=== PATIENT | male | born 1975 | race Caucasian/White ===

== ENCOUNTER 2017-05-06 12:20 | Emergency (ER) | payer MEDICAID, OTHER ==
[~2017-05-06] VITALS: Ht 157.5 cm; Wt 68.0 kg
[2017-05-06 12:25] VITALS: Ht 157.5 cm; Wt 68.0 kg
--- NOTE | 2017-05-06 12:27 | ERD ---
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 Patient called 911 because he is feeling jittery and tremulous after stopping drinking. He has alcohol abuse issues. He denies any hematemesis or melena, no abdominal pain back pain or flank pain. The patient is asking for detox. ROS All systems reviewed and are negative except as per history of present illness. Medications Home Meds Reported Medications Ranitidine Hcl* (Zantac*) 150 Mg Tablet, 150 MG PO HS, #30 TAB 05/06/17 Allergies Allergies: Coded Allergies: No Known Allergy (Unverified , 05/06/17) FmHx Family History: No diabetes Physical Exam Vitals Vital Signs Date Time Temp Pulse Resp B/P Pulse Ox O2 Delivery O2 Flow Rate FiO2 05/06/17 12:25 98.2 130 20 170/98 100 Physical Exam General: Well developed, well nourished, no acute distress the patient is resting comfortably with arms at his side, when asked to put out his arms he starts to shake them voluntarily Head: Normocephalic, atraumatic. Eyes: Pupils equally reactive, EOM intact ENT: Moist mucous membranes Neck: Supple, no lymphadenopathy Respiratory: Lungs clear bilaterally, no distress Cardiovascular: Tachycardia, no murmurs, rubs, or gallops Abdominal: Soft, non-tender, non-distended, no peritoneal signs : Deferred MSK: No edema, no unilateral swelling, 5/5 strength Neurologic: Alert and oriented, moving all extremities, normal speech, no focal weakness, no cerebellar signs, no asterixis Skin: No rash Psych: Normal mood Results 24 hrs Current Medications Medications (Trade) Dose Ordered Sig/Gisela Route PRN Reason Start Time Stop Time Status Last Admin Dose Admin Lorazepam 1 mg 1 mg ONCE ONCE PO 05/06/17 12:30 05/06/17 12:31 DC 05/06/17 12:33 Sodium Chloride (NS) 1,000 ml @ 1,000 mls/hr Q1H STAT IV 05/06/17 12:32 05/06/17 13:31 DC 05/06/17 12:42 Lorazepam (Ativan) 1 mg ONCE ONCE IV 05/06/17 13:00 05/06/17 13:01 DC 05/06/17 12:47 Thiamine HCl (Vitamin B1) 100 mg ONCE ONCE PO 05/06/17 13:00 05/06/17 13:01 DC 05/06/17 13:01 Folic Acid 1 mg 1 mg ONCE ONCE PO 05/06/17 13:00 05/06/17 13:01 DC 05/06/17 13:01 Sodium Chloride (NS) 1,000 ml @ 1,000 mls/hr Q1H STAT IV 05/06/17 13:03 05/06/17 14:02 05/06/17 13:08 Procedures/MDM MEDICAL DECISION MAKING: The patient presents with report of feeling shaky and tremulous after stopping drinking yesterday evening. However, the patient has a clinical exam that is consistent with behavioral shaking. His tremor is not consistent with involuntary tremor secondary to alcohol withdrawal. No evidence of complication such as seizure, altered mental status, head injury, GI bleed. The patient does have evidence of tachycardia possibly related to dehydration, mild withdrawal. For this reason the patient will benefit from gentle fluid resuscitation, IV benzodiazepines. The patient does not seem to be motivated and I am concerned that he may not be motivated as an outpatient. There is significant risk with providing outpatient benzodiazepines to this patient. He was offered complex carbohydrate meal but refused. The patient was given 1 mg of p.o. Ativan. ER COURSE: services program manager resources were provided to the patient for outpatient detox centers. The patient does have sinus tachycardia that is likely consistent with dehydration versus early withdrawal. For this reason an IV was established the patient was given a liter saline and 1 of IV Ativan after the oral Ativan. The patient had improved symptoms has not required repeat dosing and heart rate has improved with intervention. Oral thiamine and folic acid also provided. I kept the patient and/or family informed of laboratory and diagnostic imaging results throughout the emergency room course. DISPOSITION PLAN: We discussed follow up with the patient's primary care doctor within 24 to 48 hours as needed. We also discussed return to the emergency room for worsening symptoms or worsening condition. Outpatient referral: Detox and substance abuse resources Departure Diagnosis: Primary Impression: Alcohol abuse Additional Impression: Alcohol withdrawal Complication of substance-induced condition: with unspecified complication Qualified Code: F10.239 - Alcohol withdrawal, with unspecified complication Condition: Stable Patient Instructions: Alcoholism: Getting Help, Alcohol Addiction, Alcohol Abuse Referrals: [facility] Usted se plasencia hecho un examen mdico de control que le indica que no est en diane condicin que requiera tratamiento urgente en el Departamento de Emergencia. Un estudio ms profundo y el tratamiento de hurley condicin pueden esperar sin ningn riesgo hasta que usted sea atendida/o en el consultorio de hurley mdico o diane cl isaura. Es responsabilidad suya arreglar diane yuriy para el seguimiento del phill. MANEJO DE CONDICIONES NO URGENTES EN EL FUTURO 1) Si usted tiene un mdico de atencin primaria: Usted debera llamar a hurley mdico de atencin primaria antes de venir al departamento de emergencia. Despus de las horas de consultorio, hurley doctor o hurley asociado/a est disponible por telfono. El mdico o enfermero de jona en el servicio telefnico puede asesorarle por jarred medio para atender el problema, o phill contrario se puede programar diane yuriy. 2) Si usted no tiene un mdico de atencin primaria: Llame al mdico o clnica de referencia que aparece abajo elo las horas de consultorio para hacer diane yuriy para que le vean. CLINICAS: [facility] [phone] [facility] [phone] [facility] [phone] [facility]. [facility] [phone] [facility] [facility]. [place] [phone] [facility]. [phone] [address] [facility] [facility] () Usted se plasencia hecho un examen mdico de control que le indica que no est en diane condicin que requiera tratamiento urgente en el Departamento de Emergencia. Un estudio ms profundo y el tratamiento de hurley condicin pueden esperar sin ningn riesgo hasta que usted sea atendida/o en el consultorio de hurley mdico o diane cl isaura. Es responsabilidad suya arreglar diane yuriy para el seguimiento del phill. MANEJO DE CONDICIONES NO URGENTES EN EL FUTURO 1) Si usted tiene un mdico de atencin primaria: Usted debera llamar a hurley mdico de atencin primaria antes de venir al departamento de emergencia. Despus de las horas de consultorio, hurley doctor o hurley asociado/a est disponible por telfono. El mdico o enfermero de jona en el servicio telefnico puede asesorarle por jarred medio para atender el problema, o phill contrario se puede programar diane yuriy. 2) Si usted no tiene un mdico de atencin primaria: Llame al mdico o condado institucions de referencia que aparece abajo elo las horas de consultorio para hacer diane yuriy para que le vean. SI USTED NO PUEDE PAGAR PARA LAILA UN MEDICO puede ir a: [facility] [address] [place] [address] [facility] [address] [place] [address] [facility] [address] [place] [address] PARA ARNULFO [facility] [address] [place], [place] [id number] Additional Instructions: Llame al doctor nombrado abajo (Referral Sources) MAANA y sandi diane YURIY PARA DENTRO DE DIANE SEMANA. Dgale a la secretaria que nosotros le instruimos hacer esta uyriy.Avise o llame si hurley condicin se empeora antes de la yuriy. DANIEL ABBASI MD May 06, 2017 12:27
[2017-05-06] MEDS ORDERED: LORAZEPAM 1 MG TAB PO ONE (12:30)
[2017-05-06] MEDS ORDERED: SOD CHLORIDE 0.9% 1,000 ML IV STA ×2 (12:32→13:03)
[2017-05-06] MEDS ORDERED: THIAMINE 100 MG TAB PO ONE (13:00)
[2017-05-06] MEDS ORDERED: LORAZEPAM 2 MG INJ IV ONE (13:00)
[2017-05-06] MEDS ORDERED: FOLIC ACID 1 MG TAB PO ONE (13:00)
[2017-05-06] MEDS ORDERED: RANI150T9 PO (13:18)
[2017-05-06 13:41] VITALS: BP 138/82; PULSE 100; RESP 18
== END 2017-05-06 13:41 | disposition home or self-care (01) ==
LOC: E/R 12:20
DX: F10.239 Alcohol dependence with withdrawal, unspecified (principal)
CPT/HCPCS: 96374; J2060; J7030; Z7502; Z7610

== ENCOUNTER 2017-05-19 22:20 | Emergency (ER) | payer MEDICAID ==
[~2017-05-19] VITALS: Ht 167.6 cm; Wt 77.5 kg
[~2017-05-19 22:20] MED LIST: RANI150T9 PO
[2017-05-19 22:24] VITALS: Ht 167.6 cm; Wt 77.5 kg
--- NOTE | 2017-05-19 22:57 | ERA ---
ER Documentation Chief Complaint Date/Time DATE: 05/19/17 TIME: 22:57 Chief Complaint etoh intoxication HPI The patient is a 41-year-old male, presenting to the ER because of bilateral upper extremity rash for 2 days. It is itchy. He denies fever, chills, neck pain, chest pain. Has been drinking heavily for the last couple days, complains of minimal epigastric abdominal discomfort. He was in the ER about 7 days ago for alcohol intoxication. He complains of nausea and vomited mostly mucus, denies diarrhea, constipation, dysuria. He does not smoke nor does illicit drug Past medical history: Hypertension however he is noncompliant with his medication Past surgical history: Appendectomy ROS All systems reviewed and are negative except as per history of present illness. Medications Home Meds Active Scripts Triamcinolone Acetonide* (Kenalog*) 0.1%-15GM Cr, 1 APPLIC TOP BID for 10 Days, #1 TUB Prov:LUDWIN PICKENS MD 05/20/17 Reported Medications Multivitamins* (Theragran*) 1 Tab Tab, 1 TAB PO DAILY, TAB 05/19/17 Ranitidine Hcl* (Zantac*) 150 Mg Tablet, 150 MG PO HS, #30 TAB 05/06/17 Allergies Allergies: Coded Allergies: No Known Allergy (Unverified , 05/19/17) PMhx/Soc History of Surgery: Yes (Appendectomy) Anesthesia Reaction: No Hx Neurological Disorder: No Hx Respiratory Disorders: No Hx Cardiac Disorders: Yes (HTN) Hx Psychiatric Problems: No Hx Miscellaneous Medical Probl: No Hx Alcohol Use: Yes (Here for Withdrawal) Hx Substance Use: No Hx Tobacco Use: No Smoking Status: Never smoker Physical Exam Vitals Vital Signs Date Time Temp Pulse Resp B/P Pulse Ox O2 Delivery O2 Flow Rate FiO2 05/20/17 02:22 97.7 103 16 136/82 96 Room Air 05/20/17 00:22 115 20 155/88 98 05/19/17 22:24 97.2 133 20 162/97 97 Physical Exam Const: No acute distress. Head: Atraumatic. Eyes: Normal Conjunctiva. ENT: Normal External Ears, Nose and Mouth. Neck: Full range of motion. No meningismus. Resp: Clear to auscultation bilaterally. Cardio: Regular tachycardic Abd: Soft, non distended, normal bowel sounds, mild epigastric tenderness, no right lower, coronary upper quadrant, rigidity, rebound, CVA tenderness Skin: No petechiae or rashes. Back: No midline or flank tenderness. Ext: No cyanosis, or edema. Minimal erythematous macular rash on the left upper extremity. No vesicle, no petechia Neur: Awake and alert. No focal deficit Psych: Normal Mood and Affect. Result Diagram: 05/19/17 2330 05/19/17 2330 Results 24 hrs Laboratory Tests Test 05/19/17 23:30 White Blood Count 3.610^3/ul Red Blood Count 5.8910^6/ul Hemoglobin 16.4g/dl Hematocrit 47.9% Mean Corpuscular Volume 81.3fl Mean Corpuscular Hemoglobin 27.8pg Mean Corpuscular Hemoglobin Concent 34.2g/dl Red Cell Distribution Width 14.0% Platelet Count 34240^3/UL Mean Platelet Volume 11.0fl Neutrophils % 58.5% Lymphocytes % 31.7% Monocytes % 8.1% Eosinophils % 0.8% Basophils % 0.6% Nucleated Red Blood Cells % 0.0/100WBC Neutrophils # 2.110^3/ul Lymphocytes # 1.110^3/ul Monocytes # 0.310^3/ul Eosinophils # 0.010^3/ul Basophils # 0.010^3/ul Nucleated Red Blood Cells # 0.010^3/ul Urine Color COLORLESS Urine Clarity CLEAR Urine pH 6.0 Urine Specific [place] 1.002 Urine Ketones NEGATIVEmg/dL Urine Nitrite NEGATIVEmg/dL Urine Bilirubin NEGATIVEmg/dL Urine Urobilinogen NEGATIVEmg/dL Urine Leukocyte Esterase NEGATIVELeu/ul Urine Hemoglobin NEGATIVEmg/dL Urine Glucose NEGATIVEmg/dL Urine Total Protein NEGATIVEmg/dl Sodium Level 150mmol/L Potassium Level 3.8mmol/L Chloride Level 103mmol/L Carbon Dioxide Level 22mmol/L Anion Gap 29 Blood Urea Nitrogen 7mg/dl Creatinine 1.17mg/dl Glucose Level 110mg/dl Calcium Level 9.4mg/dl Total Bilirubin 0.4mg/dl Direct Bilirubin 0.00mg/dl Indirect Bilirubin 0.4mg/dl Aspartate Amino Transf (AST/SGOT) 52IU/L Alanine Aminotransferase (ALT/SGPT) 50IU/L Alkaline Phosphatase 92IU/L Total Protein 9.0g/dl Albumin 5.1g/dl Globulin 3.90g/dl Albumin/Globulin Ratio 1.30 Lipase 61U/L Urine Opiates Screen Negative Urine Barbiturates Negative Urine Amphetamines Screen Negative Urine Benzodiazepines Screen Negative Urine Cocaine Screen Negative Urine Cannabinoids Negative Ethyl Alcohol Level 422.0mg/dl Current Medications Medications (Trade) Dose Ordered Sig/Gisela Route PRN Reason Start Time Stop Time Status Last Admin Dose Admin Sodium Chloride (NS) 1,000 ml @ 1,000 mls/hr Q1H STAT IV 05/19/17 23:05 05/20/17 00:04 DC 05/19/17 23:23 Lorazepam (Ativan) 1 mg ONCE ONCE IV 05/19/17 23:30 05/19/17 23:31 DC 05/19/17 23:23 Clonidine (Catapres) 0.2 mg ONCE ONCE PO 05/19/17 23:30 05/19/17 23:31 DC 05/19/17 23:23 Thiamine HCl (Vitamin B1) 100 mg ONCE ONCE PO 05/19/17 23:30 05/19/17 23:31 DC Folic Acid (Folic Acid) 1 mg ONCE ONCE PO 05/19/17 23:30 05/19/17 23:31 DC Ondansetron HCl (Zofran Inj) 4 mg ONCE STAT IV 05/19/17 23:05 05/19/17 23:10 DC 05/19/17 23:24 Procedures/MDM MEDICAL MAKING DECISION: The patient is a 41-year-old male, presenting with acute bilateral upper extremity nonspecific dermatitis, alcohol intoxication, hyponatremia, leukopenia , accelerated hypertension he was treated with 1 L normal saline, Ativan 1 mg IV , Zofran formula, IV, clonidine 0.2 mg p.o., thiamine 100 mg p.o. and folic acid 1 mg p.o. good response. His vital signs improved and his heart rate normalized. He is ambulating independently and tolerating p.o. well in the ER. He has stay in the ER for many hours and now is stable for discharge Departure Diagnosis: Primary Impression: Dermatitis Additional Impressions: Alcohol abuse Hypernatremia Leukopenia Condition: Good Comments He was discharged with Kenalog I discussed the findings with the patient. I advised the patient to follow-up with the primary physician in about 1-2 days, sooner if needed and return if any concern. LUDWIN PICKENS MD May 19, 2017 22:57
[2017-05-19] MEDS ORDERED: ONDANSETRON 4 MG INJ IV STA (23:05)
[2017-05-19] MEDS ORDERED: SOD CHLORIDE 0.9% 1,000 ML IV STA (23:05)
[2017-05-19] MEDS ORDERED: MULTI PO (23:27)
[2017-05-19] MEDS ORDERED: THIAMINE 100 MG TAB PO ONE (23:30)
[2017-05-19] MEDS ORDERED: FOLIC ACID 1 MG TAB PO ONE (23:30)
[2017-05-19] MEDS ORDERED: LORAZEPAM 2 MG INJ IV ONE (23:30)
[2017-05-20 00:06] LABS: BASOPHILS % 0.6 % (0.0-2.0); EOSINOPHILS % 0.8 % (0.0-7.0); HEMATOCRIT 47.9 % (42.0-52.0); HEMOGLOBIN 16.4 g/dl (14.0-18.0); LYMPHOCYTES # 1.1 10^3/ul (0.8-2.9); LYMPHOCYTES % 31.7 % (15.0-51.0); MEAN CORPUSCULAR HEMOGLOBIN 27.8 pg (29.0-33.0); MEAN CORPUSCULAR HGB CONC 34.2 g/dl (32.0-37.0); MEAN CORPUSCULAR VOLUME 81.3 fl (82.0-101.0); MONOCYTE # 0.3 10^3/ul (0.3-0.9); MONOCYTES % 8.1 % (0.0-11.0); NEUTROPHIL # 2.1 10^3/ul (1.6-7.5); NEUTROPHILS % 58.5 % (39.0-77.0); PLATELET COUNT 278 10^3/UL (140-415); RED BLOOD COUNT 5.89 10^6/ul (4.70-6.10); WHITE BLOOD COUNT 3.6 10^3/ul (4.8-10.8)
[2017-05-20 00:26] LABS: ALBUMIN 5.1 g/dl (3.3-4.9); ALBUMIN/GLOBULIN RATIO 1.3; BARBITURATES Negative (NEGATIVE); BENZODIAZEPINES Negative (NEGATIVE); BILIRUBIN,INDIRECT 0.4 mg/dl (0-1.1); BILIRUBIN,TOTAL 0.4 mg/dl (0.2-1.3); CALCIUM 9.4 mg/dl (8.4-10.2); CANNABINOIDS Negative (NEGATIVE); COCAINE Negative (NEGATIVE); CREATININE 1.17 mg/dl (0.61-1.24); OPIATES Negative (NEGATIVE); POTASSIUM 3.8 mmol/L (3.5-5.1)
[2017-05-20 02:00] LABS: ADD UMIC NO; UR ASCORBIC ACID NEGATIVE (NEGATIVE); UR BILIRUBIN (Dip) NEGATIVE (NEGATIVE); UR BLOOD (Dip) NEGATIVE (NEGATIVE); UR CLARITY CLEAR (CLEAR); UR COLOR COLORLESS (YELLOW); UR GLUCOSE (Dip) NEGATIVE (NEGATIVE); UR KETONES (Dip) NEGATIVE (NEGATIVE); UR LEUKOCYTE ESTERASE (Dip) NEGATIVE Leu/ul (NEGATIVE); UR NITRITE (Dip) NEGATIVE (NEGATIVE); UR SPECIFIC GRAVITY (Dip) 1.002 (1.003-1.030); UR TOTAL PROTEIN (Dip) NEGATIVE (NEGATIVE); UR UROBILINOGEN (Dip) NEGATIVE (NEGATIVE)
[2017-05-20] MEDS ORDERED: TRIA15CR55 TOP (02:14)
[2017-05-20 02:22] VITALS: BP 136/82; PULSE 103; RESP 16; TEMP 97.7
== END 2017-05-20 04:08 | disposition home or self-care (01) ==
LOC: E/R 22:20
DX: L30.9 Dermatitis, unspecified (principal); E87.0 Hyperosmolality and hypernatremia; D72.819 Decreased white blood cell count, unspecified; I10 Essential (primary) hypertension
CPT/HCPCS: 36415; 80053; 80306; 80307; 81003; 83690; 85025; 96361; 96374; 96375; J2060; J2405; J7030; Z7502; Z7610

== ENCOUNTER 2017-06-08 20:19 | Emergency (ER) | payer MEDICAID ==
[~2017-06-08] VITALS: Ht 167.6 cm; Wt 77.0 kg
[~2017-06-08 20:19] MED LIST changes: +MULTI PO; +TRIA15CR55 TOP
[2017-06-08 20:21] VITALS: Ht 167.6 cm; Wt 77.0 kg
--- NOTE | 2017-06-08 23:45 | ERA ---
ER Documentation Chief Complaint Date/Time DATE: 06/08/17 TIME: 23:45 Chief Complaint Abdominal pain HPI The patient is a 41-year-old male, presenting to the ER because of epigastric abdominal pain intermittently for the last week after drinking heavily. He has similar symptoms previously, denies fever, chills, chest pain, dyspnea, hematemesis, hematochezia, dysuria, diarrhea. He does not smoke, denies any illicit Past medical history: Anxiety, gastritis Past surgical history: Appendectomy ROS All systems reviewed and are negative except as per history of present illness. Medications Home Meds Active Scripts Lorazepam* (Ativan*) 0.5 Mg Tablet, 0.5 MG PO Q8, #10 TAB Prov:LUDWIN PICKENS MD 06/09/17 Pantoprazole* (Protonix*) 40 Mg Tablet.dr, 40 MG PO DAILY, #20 TAB Prov:LUDWIN PICKENS MD 06/09/17 Triamcinolone Acetonide* (Kenalog*) 0.1%-15GM Cr, 1 APPLIC TOP BID for 10 Days, #1 TUB Prov:LUDWIN PICKENS MD 05/20/17 Reported Medications Multivitamins* (Theragran*) 1 Tab Tab, 1 TAB PO DAILY, TAB 05/19/17 Ranitidine Hcl* (Zantac*) 150 Mg Tablet, 150 MG PO HS, #30 TAB 05/06/17 Allergies Allergies: Coded Allergies: No Known Allergy (Unverified , 06/09/17) PMhx/Soc History of Surgery: Yes (Appendectomy) Anesthesia Reaction: No Hx Neurological Disorder: No Hx Respiratory Disorders: No Hx Cardiac Disorders: Yes (HTN) Hx Psychiatric Problems: No Hx Miscellaneous Medical Probl: No Hx Alcohol Use: Yes (HEAVY DRINKER ) Hx Substance Use: No Hx Tobacco Use: No Smoking Status: Never smoker Physical Exam Vitals Vital Signs Date Time Temp Pulse Resp B/P Pulse Ox O2 Delivery O2 Flow Rate FiO2 06/09/17 03:54 97.9 95 16 124/92 98 Room Air 06/09/17 02:00 87 15 100/72 97 Room Air 06/08/17 23:30 97.6 103 26 141/95 96 Room Air 06/08/17 20:21 97.8 125 20 140/86 98 Physical Exam Const: No acute distress. Head: Atraumatic. Eyes: Normal Conjunctiva. ENT: Normal External Ears, Nose and Mouth. Neck: Full range of motion. No meningismus. Resp: Clear to auscultation bilaterally. Cardio: Regular tachycardic Abd: Soft, non distended, normal bowel sounds, mild epigastric tenderness, no right lower quadrant, right upper quadrant, CVA tenderness Skin: No petechiae or rashes. Back: No midline or flank tenderness. Ext: No cyanosis, or edema. Neur: Awake and alert. No focal deficit Psych: Normal Mood and Affect. Result Diagram: 06/09/17 0015 06/09/17 0015 Results 24 hrs Laboratory Tests Test 06/09/17 00:15 White Blood Count 3.110^3/ul Red Blood Count 5.3110^6/ul Hemoglobin 14.9g/dl Hematocrit 43.6% Mean Corpuscular Volume 82.1fl Mean Corpuscular Hemoglobin 28.1pg Mean Corpuscular Hemoglobin Concent 34.2g/dl Red Cell Distribution Width 14.0% Platelet Count 63474^3/UL Mean Platelet Volume 10.3fl Neutrophils % 41.0% Lymphocytes % 47.5% Monocytes % 6.6% Eosinophils % 3.9% Basophils % 1.0% Nucleated Red Blood Cells % 0.0/100WBC Neutrophils # (Manual) 1.310^3/ul Lymphocytes # 1.510^3/ul Monocytes # 0.210^3/ul Eosinophils # 0.110^3/ul Basophils # 0.010^3/ul Nucleated Red Blood Cells # 0.010^3/ul Sodium Level 143mmol/L Potassium Level 3.5mmol/L Chloride Level 101mmol/L Carbon Dioxide Level 26mmol/L Anion Gap 20 Blood Urea Nitrogen 7mg/dl Creatinine 0.81mg/dl Glucose Level 98mg/dl Calcium Level 8.9mg/dl Total Bilirubin 0.2mg/dl Direct Bilirubin 0.00mg/dl Indirect Bilirubin 0.2mg/dl Aspartate Amino Transf (AST/SGOT) 53IU/L Alanine Aminotransferase (ALT/SGPT) 60IU/L Alkaline Phosphatase 106IU/L Total Protein 8.0g/dl Albumin 4.3g/dl Globulin 3.70g/dl Albumin/Globulin Ratio 1.16 Lipase 62U/L Current Medications Medications (Trade) Dose Ordered Sig/Gisela Route PRN Reason Start Time Stop Time Status Last Admin Dose Admin Sodium Chloride (NS) 1,000 ml @ 1,000 mls/hr Q1H STAT IV 06/09/17 00:08 06/09/17 01:07 DC 06/09/17 00:23 Lorazepam (Ativan) 1 mg ONCE ONCE IV 06/09/17 00:30 06/09/17 00:31 DC 06/09/17 00:23 Procedures/MDM MEDICAL MAKING DECISION: The patient is a 41-year-old male, presenting with acute epigastric abdominal pain, most likely alcohol induced gastritis. He was treated with 1 L normal saline for clinical dehydration, Ativan 1 mg IV for mild alcohol withdrawal with good response The differential diagnoses considered include but are not limited to Megha- Day tear, cholelithiasis, cholecystitis, cystitis, pancreatitis, hepatitis, gastritis, peptic ulcer disease, gastric ulcer, appendicitis, diverticulitis, cholangitis, choledocholithiasis, partial small bowel obstruction. Departure Diagnosis: Primary Impression: Abdominal pain Additional Impression: Alcohol abuse Condition: Good Comments He was discharged with Protonix and Ativan I discussed the findings with the patient. I advised the patient to follow-up with the primary physician in about 1-2 days, sooner if needed and return if any concern. The patient's blood pressure was elevated (>120/80) but appears stable without evidence of hypertension emergency or urgency. The patient was counseled about the risks of hypertension and urged to pursue outpatient monitoring and therapy within a week with their primary care physician. LUDWIN PICKENS MD Jun 08, 2017 23:44
[2017-06-09] MEDS ORDERED: SOD CHLORIDE 0.9% 1,000 ML IV STA (00:08)
[2017-06-09] MEDS ORDERED: LORAZEPAM 2 MG INJ IV ONE (00:30)
[2017-06-09 00:35] LABS: EOSINOPHILS # 0.1 10^3/ul (0.0-0.5); EOSINOPHILS % 3.9 % (0.0-7.0); HEMATOCRIT 43.6 % (42.0-52.0); HEMOGLOBIN 14.9 g/dl (14.0-18.0); LYMPHOCYTES # 1.5 10^3/ul (0.8-2.9); LYMPHOCYTES % 47.5 % (15.0-51.0); MEAN CORPUSCULAR HEMOGLOBIN 28.1 pg (29.0-33.0); MEAN CORPUSCULAR HGB CONC 34.2 g/dl (32.0-37.0); MEAN CORPUSCULAR VOLUME 82.1 fl (82.0-101.0); MEAN PLATELET VOLUME 10.3 fl (7.4-10.4); MONOCYTE # 0.2 10^3/ul (0.3-0.9); MONOCYTES % 6.6 % (0.0-11.0); PLATELET COUNT 261 10^3/UL (140-415); RED BLOOD COUNT 5.31 10^6/ul (4.70-6.10); WHITE BLOOD COUNT 3.1 10^3/ul (4.8-10.8)
[2017-06-09 00:53] LABS: ALBUMIN 4.3 g/dl (3.3-4.9); ALBUMIN/GLOBULIN RATIO 1.16; BILIRUBIN,INDIRECT 0.2 mg/dl (0-1.1); BILIRUBIN,TOTAL 0.2 mg/dl (0.2-1.3); CALCIUM 8.9 mg/dl (8.4-10.2); CREATININE 0.81 mg/dl (0.61-1.24); POTASSIUM 3.5 mmol/L (3.5-5.1)
[2017-06-09] MEDS ORDERED: LORA-441 PO (03:19)
[2017-06-09] MEDS ORDERED: PANT40TA3 PO (03:19)
[2017-06-09 03:54] VITALS: BP 124/92; PULSE 95; RESP 16; TEMP 97.9
== END 2017-06-09 03:54 | disposition home or self-care (01) ==
LOC: E/R 20:19
DX: R10.13 Epigastric pain (principal); F10.10 Alcohol abuse, uncomplicated; I10 Essential (primary) hypertension
CPT/HCPCS: 36415; 80053; 83690; 85025; 93005; 96374; J2060; J7030; Z7502

== ENCOUNTER 2017-09-05 19:52 | Emergency (ER) | payer SELFPAY ==
[~2017-09-05] VITALS: Ht 170.2 cm; Wt 82.5 kg
[~2017-09-05 19:52] MED LIST changes: +LORA-441 PO; +PANT40TA3 PO
[2017-09-05 20:15] VITALS: Ht 170.2 cm; Wt 82.5 kg
[2017-09-05] MEDS ORDERED: ONDANSETRON 4 MG INJ IV STA (23:49)
[2017-09-05] MEDS ORDERED: SOD CHLORIDE 0.9% 1,000 ML IV STA (23:49)
[2017-09-06] MEDS ORDERED: LORAZEPAM 2 MG INJ IV ONE
[2017-09-06 00:58] LABS: BASOPHILS % 0.5 % (0.0-2.0); EOSINOPHILS # 0.1 10^3/ul (0.0-0.5); EOSINOPHILS % 0.8 % (0.0-7.0); HEMATOCRIT 51.1 % (42.0-52.0); HEMOGLOBIN 17.4 g/dl (14.0-18.0); LYMPHOCYTES # 1.5 10^3/ul (0.8-2.9); LYMPHOCYTES % 24.9 % (15.0-51.0); MEAN CORPUSCULAR HEMOGLOBIN 27.9 pg (29.0-33.0); MEAN CORPUSCULAR HGB CONC 34.1 g/dl (32.0-37.0); MEAN CORPUSCULAR VOLUME 81.9 fl (82.0-101.0); MEAN PLATELET VOLUME 10.8 fl (7.4-10.4); MONOCYTE # 0.3 10^3/ul (0.3-0.9); MONOCYTES % 5.6 % (0.0-11.0); NEUTROPHIL # 4.2 10^3/ul (1.6-7.5); PLATELET COUNT 333 10^3/UL (140-415); RED BLOOD COUNT 6.24 10^6/ul (4.70-6.10); RED CELL DISTRIBUTION WIDTH 12.7 % (11.5-14.5); WHITE BLOOD COUNT 6.1 10^3/ul (4.8-10.8)
[2017-09-06 01:20] LABS: ALBUMIN 5.1 g/dl (3.3-4.9); ALBUMIN/GLOBULIN RATIO 1.3; BILIRUBIN,INDIRECT 0.9 mg/dl (0-1.1); BILIRUBIN,TOTAL 0.9 mg/dl (0.2-1.3); CALCIUM 10.2 mg/dl (8.4-10.2); CREATININE 0.94 mg/dl (0.61-1.24); POTASSIUM 4.5 mmol/L (3.5-5.1)
--- NOTE | 2017-09-06 01:39 | ERD ---
ER Documentation Chief Complaint Chief Complaint Drank 15 beers/day x1 week, now vomiting and having withdrawal symptoms HPI Is a 42-year-old male complaining of withdrawal symptoms states that he normally drinks 15 beers a day. Now: Some mild vomiting. Withdrawal symptoms. Denies any fevers or chills. Feels tremulous. No other current issues. ROS All systems reviewed and are negative except as per history of present illness. Medications Home Meds Active Scripts Lorazepam* (Ativan*) 0.5 Mg Tablet, 0.5 MG PO Q8, #10 TAB Prov:LUDWIN PICKENS MD 06/09/17 Pantoprazole* (Protonix*) 40 Mg Tablet.dr, 40 MG PO DAILY, #20 TAB Prov:LUDWIN PICKENS MD 06/09/17 Triamcinolone Acetonide* (Kenalog*) 0.1%-15GM Cr, 1 APPLIC TOP BID for 10 Days, #1 TUB Prov:LUDWIN PICKENS MD 05/20/17 Reported Medications Multivitamins* (Theragran*) 1 Tab Tab, 1 TAB PO DAILY, TAB 05/19/17 Ranitidine Hcl* (Zantac*) 150 Mg Tablet, 150 MG PO HS, #30 TAB 05/06/17 Allergies Allergies: Coded Allergies: No Known Allergy (Unverified , 06/09/17) PMhx/Soc History of Surgery: Yes (appy) Anesthesia Reaction: No Hx Neurological Disorder: No Hx Respiratory Disorders: No Hx Psychiatric Problems: No Hx Miscellaneous Medical Probl: No Hx Alcohol Use: Yes Hx Substance Use: No Hx Tobacco Use: No Smoking Status: Never smoker Physical Exam Vitals Vital Signs Date Time Temp Pulse Resp B/P Pulse Ox O2 Delivery O2 Flow Rate FiO2 09/06/17 00:29 98.2 72 20 109/61 97 Room Air 09/05/17 20:15 98.1 130 18 151/103 95 Physical Exam Const: [] Head: Atraumatic Eyes: Normal Conjunctiva ENT: Normal External Ears, Nose and Mouth. Neck: Full range of motion..~ No meningismus. Resp: Clear to auscultation bilaterally Cardio: Regular rate and rhythm, no murmurs Abd: Soft, non tender, non distended. Normal bowel sounds Skin: No petechiae or rashes Back: No midline or flank tenderness Ext: No cyanosis, or edema Neur: Awake and alert Psych: Normal Mood and Affect Result Diagram: 09/06/17 0010 09/06/17 0010 Results 24 hrs Laboratory Tests Test 09/06/17 00:10 White Blood Count 6.110^3/ul Red Blood Count 6.2410^6/ul Hemoglobin 17.4g/dl Hematocrit 51.1% Mean Corpuscular Volume 81.9fl Mean Corpuscular Hemoglobin 27.9pg Mean Corpuscular Hemoglobin Concent 34.1g/dl Red Cell Distribution Width 12.7% Platelet Count 06175^3/UL Mean Platelet Volume 10.8fl Neutrophils % 68.0% Lymphocytes % 24.9% Monocytes % 5.6% Eosinophils % 0.8% Basophils % 0.5% Nucleated Red Blood Cells % 0.0/100WBC Neutrophils # 4.210^3/ul Lymphocytes # 1.510^3/ul Monocytes # 0.310^3/ul Eosinophils # 0.110^3/ul Basophils # 0.010^3/ul Nucleated Red Blood Cells # 0.010^3/ul Sodium Level 145mmol/L Potassium Level 4.5mmol/L Chloride Level 102mmol/L Carbon Dioxide Level 21mmol/L Anion Gap 27 Blood Urea Nitrogen 11mg/dl Creatinine 0.94mg/dl Glucose Level 98mg/dl Calcium Level 10.2mg/dl Total Bilirubin 0.9mg/dl Direct Bilirubin 0.00mg/dl Indirect Bilirubin 0.9mg/dl Aspartate Amino Transf (AST/SGOT) 67IU/L Alanine Aminotransferase (ALT/SGPT) 59IU/L Alkaline Phosphatase 139IU/L Total Protein 9.0g/dl Albumin 5.1g/dl Globulin 3.90g/dl Albumin/Globulin Ratio 1.30 Lipase 73U/L Current Medications Medications (Trade) Dose Ordered Sig/Gisela Route PRN Reason Start Time Stop Time Status Last Admin Dose Admin Sodium Chloride (NS) 1,000 ml @ 1,000 mls/hr Q1H STAT IV 09/05/17 23:49 09/06/17 00:48 DC 09/06/17 00:17 Ondansetron HCl (Zofran Inj) 4 mg ONCE STAT IV 09/05/17 23:49 09/05/17 23:51 DC 09/06/17 00:17 Lorazepam (Ativan) 1 mg ONCE ONCE IV 09/06/17 00:00 09/06/17 00:01 DC 09/06/17 00:17 Procedures/MDM Assessment: 40 mL mild alcohol withdrawal symptoms. Treated with Ativan. Clinic stable for outpatient management. Discharge home with Librium. Return for worsening symptoms Departure Diagnosis: Primary Impression: Alcohol withdrawal syndrome Complication of substance-induced condition: uncomplicated Qualified Code: F10.230 - Alcohol withdrawal syndrome without complication Condition: Stable LEANN COLLAZO Sep 06, 2017 01:39
[2017-09-06] MEDS ORDERED: CHLO25CA9 PO (01:43)
[2017-09-06 01:59] VITALS: BP 118/78; PULSE 79; RESP 18; TEMP 98.5
== END 2017-09-06 02:01 | disposition home or self-care (01) ==
LOC: E/R 19:52
DX: F10.230 Alcohol dependence with withdrawal, uncomplicated (principal)
CPT/HCPCS: 36415; 80053; 83690; 85025; 96374; 96375; 99284; J2060; J2405; J7030

== ENCOUNTER 2017-10-16 15:50 | Emergency (ER) | END 2017-10-16 20:52 | disposition home or self-care (01) ==

== ENCOUNTER 2017-11-16 14:40 | Emergency (ER) | END 2017-11-16 20:52 | disposition left against medical advice (07) ==

== ENCOUNTER → 2019-05-17 | Emergency (ER) | payer SELFPAY ==
[~2019-05-17] VITALS: Ht 157.5 cm; Wt 85.0 kg
[~2019-05-17] MED LIST changes: +BELLADONNA/PHENOBARBITAL TAB PO STA; +CHLO25CA9 PO; +CHLORDIAZEPOXIDE 25 MG CAP PO ONE; +FAMO-96 PO; +FAMOTIDINE 20 MG INJ IV STA; +LACTATED RINGER'S 1,000 ML IV STA; +LIDOCAINE/MYLANTA 40 ML BTL PO STA; +LORAZEPAM 2 MG INJ IV ONE; +ONDA4TAB14 PO; +ONDANSETRON 4 MG INJ IV STA; +RANI150T35 PO; -RANI150T9 PO; +SOD CHLORIDE 0.9% 1,000 ML IV STA
[2019-05-17 05:15] VITALS: Ht 157.5 cm; Wt 85.0 kg
--- NOTE | 2019-05-17 06:46 | ERD ---
ER Documentation Chief Complaint Chief Complaint C/O CP, SWEATING, VOMITING AND SOB X2 DAYS, STATES BINGE DRINKING X1 WEEK HPI This is a 43-year-old male who presents to the emergency department the past medical history of alcoholism. The patient states for the past week he has been consuming a significant amount of alcohol. For the past 48 hours he states he is felt very nauseous. Several hours prior to arrival he developed a sudden onset of palpitations and had multiple episodes of nonbloody nonbilious emesis. He denies any hematemesis or melanotic stools. He states he felt epigastric burning sensation prior to the emesis. Contrary to the triage note he did not experience any chest pain. He stated the discomfort with palpitations prior to the emesis. He also denies any shortness of breath. He has had no recent travel or prolonged immobilization. He denies any suicidal homicidal thoughts or ideations. He states he is never had any history of alcohol withdrawal seizures. His last consumption of alcohol was roughly 2 hours prior to arrival. ROS All systems reviewed and are negative except as per history of present illness. Medications Home Meds Active Scripts Ondansetron (Ondansetron Odt) 4 Mg Tab.rapdis, 4 MG PO Q6H PRN for NAUSEA AND/OR VOMITING, #10 TAB Prov:SAIMA PEREZ MD 05/17/19 Lorazepam* (Ativan*) 0.5 Mg Tablet, 0.5 MG PO Q8, #5 TAB Prov:LJ SANTIAGO PA-C 10/16/17 Famotidine* (Pepcid*) 20 Mg Tablet, 20 MG PO BID for 4 Days, TAB Prov:LJ SANTIAGO PA-C 10/16/17 Ondansetron (Ondansetron Odt) 4 Mg Tab.rapdis, 4 MG PO Q6H PRN for NAUSEA AND/OR VOMITING, #10 TAB Prov:LJ SANTIAGO PA-C 10/16/17 Chlordiazepoxide* (Chlordiazepoxide*) 25 Mg Capsule, 25 MG PO Q8 PRN for CONTROL WITHDRAWAL SYMPTOMS, #20 CAP Prov:LEANN COLLAZO 09/06/17 Lorazepam* (Ativan*) 0.5 Mg Tablet, 0.5 MG PO Q8, #10 TAB Prov:LUDWIN PICKENS MD 06/09/17 Pantoprazole* (Protonix*) 40 Mg Tablet.dr, 40 MG PO DAILY, #20 TAB Prov:LUDWIN PICKENS MD 06/09/17 Triamcinolone Acetonide* (Kenalog*) 0.1%-15GM Cr, 1 APPLIC TOP BID for 10 Days, #1 TUB Prov:LUDWIN PICKENS MD 05/20/17 Reported Medications Multivitamins* (Theragran*) 1 Tab Tab, 1 TAB PO DAILY, TAB 05/19/17 Ranitidine Hcl* (Zantac*) 150 Mg Tablet, 150 MG PO HS, #30 TAB 05/06/17 Allergies Allergies: Coded Allergies: No Known Allergy (Unverified , 10/16/17) PMhx/Soc History of Surgery: Yes (appendectomy) Anesthesia Reaction: No Hx Neurological Disorder: No Hx Respiratory Disorders: No Hx Psychiatric Problems: No Hx Miscellaneous Medical Probl: No Hx Alcohol Use: Yes Hx Substance Use: No Hx Tobacco Use: No Smoking Status: Never smoker Physical Exam Vitals Vital Signs Date Temp Pulse Resp B/P (MAP) Pulse Ox O2 O2 Flow FiO2 Time Delivery Rate 05/17/19 98.8 102 18 124/85 98 Room Air 07:55 (98) 05/17/19 121 16 151/96 97 Room Air 05:35 (114) 05/17/19 97.7 145 22 153/101 95 05:15 (118) Physical Exam Constitutional:Well-developed. Disheveled. HEENT:Normocephalic. Atraumatic.Pupils were equal round reactive to light. Dry mucous membranes.No tonsillar exudates. Neck: No nuchal rigidity. No lymphadenopathy. No posterior cervical spine tenderness or step-offs. Respiratory: Not using accessory muscles of respiration.Lungs were clear to auscultation bilaterally. No rhonchi. No rales. No wheezing. Cardiovascular: Tachycardic with regular rhythm.No murmurs. No rubs were appreciated.S1, S2 normal. Distal pulses are palpable 2+ bilaterally. GI: Abdomen was soft. Mild epigastric. Non Distended. No pulsatile abdominal masses or bruits. No rebound. No guarding. Bowel sounds were present and normal. Muscle skeletal: Full range of motion of both the upper and lower extremities bilaterally.Normal muscle tone.No assymetrical calf tenderness or swelling. Skin: Diaphoretic. No petechia, no purpura. No lesions on the palms or the soles of the feet. No maculopapular rash. NEURO: Patient was alert, awake, orientated x3.No facial droop. Gait observed and normal with no ataxia.Speech had regular rate and rhythm. No focal neurological deficits. Result Diagram: 05/17/19 0535 05/17/19 0535 Results 24 hrs Laboratory Tests Test 05/17/19 05:35 05/17/19 06:35 White Blood Count 6.5 10^3/ul Red Blood Count 6.02 10^6/ul Hemoglobin 16.7 g/dl Hematocrit 48.1 % Mean Corpuscular Volume 79.9 fl Mean Corpuscular Hemoglobin 27.7 pg Mean Corpuscular Hemoglobin Concent 34.7 g/dl Red Cell Distribution Width 12.5 % Platelet Count 269 10^3/UL Mean Platelet Volume 10.9 fl Immature Granulocytes % 0.200 % Neutrophils % 50.8 % Lymphocytes % 43.8 % Monocytes % 4.3 % Eosinophils % 0.6 % Basophils % 0.3 % Nucleated Red Blood Cells % 0.0 /100WBC Immature Granulocytes # 0.010 10^3/ul Neutrophils # 3.3 10^3/ul Lymphocytes # 2.8 10^3/ul Monocytes # 0.3 10^3/ul Eosinophils # 0.0 10^3/ul Basophils # 0.0 10^3/ul Nucleated Red Blood Cells # 0.0 10^3/ul Sodium Level 141 mmol/L Potassium Level 3.6 mmol/L Chloride Level 103 mmol/L Carbon Dioxide Level 23 mmol/L Anion Gap 15 Blood Urea Nitrogen 8 mg/dl Creatinine 0.98 mg/dl Est Glomerular Filtrat Rate mL/min > 60 mL/min Glucose Level 132 mg/dl Calcium Level 8.9 mg/dl Total Bilirubin 1.2 mg/dl Direct Bilirubin 0.00 mg/dl Indirect Bilirubin 1.2 mg/dl Aspartate Amino Transf (AST/SGOT) 129 IU/L Alanine Aminotransferase (ALT/SGPT) 84 IU/L Alkaline Phosphatase 131 IU/L Troponin I < 0.012 ng/ml Total Protein 7.9 g/dl Albumin 4.8 g/dl Globulin 3.10 g/dl Albumin/Globulin Ratio 1.54 Lipase 91 U/L Ethyl Alcohol Level 246.0 mg/dl Urine Color MARYANNE Urine Clarity SLIGHTLY CLOUDY Urine pH 6.0 Urine Specific [place] 1.028 Urine Ketones TRACE mg/dL Urine Nitrite NEGATIVE mg/dL Urine Bilirubin NEGATIVE mg/dL Urine Urobilinogen NEGATIVE mg/dL Urine Leukocyte Esterase NEGATIVE Daniela/ul Urine Microscopic RBC 2 /HPF Urine Microscopic WBC 3 /HPF Urine Bacteria FEW /HPF Urine Mucus MANY /HPF Urine Hemoglobin 2+ mg/dL Urine Glucose NEGATIVE mg/dL Urine Total Protein 3+ mg/dl Urine Opiates Screen Negative Urine Barbiturates Negative Urine Amphetamines Screen Negative Urine Benzodiazepines Screen Negative Urine Cocaine Screen Negative Urine Cannabinoids Negative Current Medications Medications Dose Sig/Gisela Start Time Status Last (Trade) Ordered Route PRN Stop Time Admin Dose Reason Admin Lorazepam 2 mg ONCE ONCE 05/17/19 DC 05/17/19 (Ativan) IV 05:30 05/17/19 05:39 05:31 Lactated 1,000 ml @ Q1H STAT 05/17/19 DC 05/17/19 Ringer's 1,000 mls/hr IV 05:28 05/17/19 05:40 06:27 Sodium 1,000 ml @ Q1H STAT 05/17/19 DC 05/17/19 Chloride 1,000 mls/hr IV 06:40 05/17/19 06:46 07:39 Ondansetron 4 mg ONCE STAT 05/17/19 DC 05/17/19 HCl (Zofran IV 06:40 05/17/19 06:48 Inj) 06:41 Famotidine 20 mg ONCE STAT 05/17/19 DC 05/17/19 (Pepcid Iv) IV 06:40 05/17/19 06:48 06:41 Ondansetron 8 mg ONCE STAT 05/17/19 DC 05/17/19 HCl (Zofran IV 12:19 05/17/19 12:32 Inj) 12:20 100 mg ONCE ONCE 05/17/19 DC 05/17/19 Chlordiazepox PO 12:30 05/17/19 12:32 rajendra 12:31 (Librium) 40 ml ONCE STAT 05/17/19 DC 05/17/19 Miscellaneous PO 12:22 05/17/19 12:31 Medication 12:23 (Gi Cocktail (2)) Belladonna/ 2 tab ONCE STAT 05/17/19 DC 05/17/19 Phenobarbital PO 12:22 05/17/19 12:40 () 12:23 Sodium 1,000 ml @ Q1H STAT 05/17/19 DC 05/17/19 Chloride 1,000 mls/hr IV 12:35 05/17/19 12:41 13:34 Lorazepam 1 mg ONCE ONCE 05/17/19 Cancel (Ativan) IV 13:00 05/17/19 13:01 Procedures/MDM This is a 43-year-old male presented to the emergency department with a history of alcoholism. The patient was diaphoretic and tachycardic and had asterixis. The patient had a serum ethanol that was elevated at 246 but was also showing signs of mild alcohol withdrawal. The patient immediately was placed on a screen printer continuous pulse oximetry and IV access was established by nursing staff. The patient received a liter bolus of normal saline and was also given benzodiazepines. His tremors have resolved. There is no evidence of delirium. He had no signs of an upper or lower gastrointestinal bleed at this time. I did a 12-lead EKG tracing and there is no signs of myocardial ischemia. 12 Lead EKG tracing ordered and reviewed by myself showed: Sinus tachycardia 131 bpm and no arrhythmia. [place] interval normal. QRS duration normal. No ST segment elevation No ST segment depression. No changes consistent with acute ischemia. Obtain a chest radiograph and there is no evidence of cardiomegaly pneumomediastinum or free air under the diaphragm. There is a right lung base consolidation. My clinical suspicion was low for pneumonia the patient had no productive cough and no leukocytosis. I did indicate to the patient that he will require further evaluation with repeat radiographic imaging to exclude a neoplasm. I obtained a chest radiograph and there is no free air underneath the diaphragm. This is reviewed by myself. There is no evidence of aspiration pneumonia or infiltrates. Patient had no evidence of hypoxia my clinical suspicion was low for pulmonary embolism. The patient had transaminitis consistent with his alcoholic liver disease. There is no leukocytosis or severe electrolyte abnormalities. The patient was able to tolerate oral intake after being observed in the emergency department. Observation Note: Time: 4 hours Family Hx: No Hypertension Evaluation: Multiple exams showed improving symptoms and no evidence of impending delirium tremors. Departure Diagnosis: Primary Impression: Alcoholic gastritis without bleeding Chronicity: acute Qualified Codes: K29.20 - Alcoholic gastritis without bleeding Additional Impressions: Palpitations Alcohol withdrawal Complication of substance-induced condition: uncomplicated Qualified Codes: F10.230 - Alcohol dependence with withdrawal, uncomplicated Condition: Fair SAIMA PEREZ MD May 17, 2019 06:45
[2019-05-17 13:35] VITALS: BP 127/77; PULSE 98; RESP 18
== END | disposition home or self-care (01) ==
LOC: E/R 05:11
DX: K29.20 Alcoholic gastritis without bleeding (principal); R00.2 Palpitations; F10.230 Alcohol dependence with withdrawal, uncomplicated; R10.13 Epigastric pain
CPT/HCPCS: 71045; 80053; 80307; 81001; 83690; 84484; 85025; 87086; 93005; J2060; J2405; J7030; J7120; 36415; 96361; 96374; 96375; 96376